=== PATIENT | male | born 1970 | race Caucasian/White ===

== ENCOUNTER 2021-12-24 09:13 | Day surgery (SDC) | payer MEDICARE, OTHER ==
[2021-12-22 12:39] VITALS: BMI 27.1
--- NOTE | 2021-12-24 07:40 | P.GSHP ---
History of Present Illness H&P Date: 12/24/21 CHIEF COMPLAINT: Colon screen HISTORY OF PRESENT ILLNESS: The patient is a 51-year-old male who presents for colon screen. Lower endoscopy was offered for further evaluation and management. PAST MEDICAL HISTORY: Please see list. PAST SURGICAL HISTORY: Please see list. MEDICATIONS: Please see list. ALLERGIES: Please see list. SOCIAL HISTORY: No illicit drug use FAMILY HISTORY: No reports of Crohn disease or ulcerative colitis. REVIEW OF ORGAN SYSTEMS: CONSTITUTIONAL: No reports of fevers or chills. PHYSICAL EXAM: VITAL SIGNS: Stable GENERAL: Well-developed pleasant in no acute distress. HEENT: No scleral icterus. Extraocular movements grossly intact. Moist buccal mucosa. NECK: Supple without lymphadenopathy. CHEST: Unlabored respirations. Equal bilateral excursions. CARDIOVASCULAR: Regular rate and rhythm. Distal 2+ pulses. ABDOMEN: Soft, nontender, nondistended. MUSCULOSKELETAL: No clubbing, cyanosis, or edema. ASSESSMENT: 1. Colon screen. PLAN: 1. Recommend proceeding with a lower endoscopy Past Medical History Past Medical History: GERD/Reflux, Hyperlipidemia, Hypertension, Osteoarthritis (OA) Additional Past Medical History / Comment(s): ELEVATED LIVER ENZYMES - PAST HISTORY , History of Any Multi-Drug Resistant Organisms: None Reported Past Surgical History: Unable to Obtain Additional Past Surgical History / Comment(s): CLEARANCE REP UNABLE TO SAY IF ANY PREVIOUS SURGERY Past Anesthesia/Blood Transfusion Reactions: Unable to Obtain Additional Past Anesthesia/Blood Transfusion Reaction / Comment(s): POSSIBLE DENTAL WITH NO PROBLEM Smoking Status: Never smoker - Past Family History Mother Family Medical History: No Reported History Medications and Allergies Home Medications Medication Instructions Recorded Confirmed Type ALPRAZolam [Xanax] 0.5 mg PO TID 12/22/21 12/22/21 History ARIPiprazole [Abilify] 2.5 mg PO HS 12/22/21 12/22/21 History Atorvastatin [Lipitor] 20 mg PO HS 12/22/21 12/22/21 History Docusate [Colace] 100 mg PO HS 12/22/21 12/22/21 History Metoprolol Succinate [Toprol XL] 100 mg PO DAILY 12/22/21 12/22/21 History Pantoprazole [Protonix] 40 mg PO DAILY 12/22/21 12/22/21 History Vitamin B Complex 1 each PO DAILY 12/22/21 12/22/21 History ramipriL [Altace] 5 mg PO BID 12/22/21 12/22/21 History Allergies Allergy/AdvReac Type Severity Reaction Status Date / Time NSAIDS (Non-Steroidal AdvReac LIVER Verified 12/22/21 12:07 Anti-Inflamma ENZYMES SEASONAL ALLERGIES AdvReac CONGESTION Uncoded 12/22/21 12:31
[~2021-12-24 09:13] MED LIST: LACTATED RINGERS 1,000 ML IV SCH; LIDOCAINE 1% (10MG/ML) FOR IV START INTRADERMA PRN
[2021-12-24 09:49] VITALS: TEMP 98.5
[2021-12-24] MEDS ORDERED: PROPOFOL 10 MG/ML 20 ML VIAL IV ONE (10:37)
--- NOTE | 2021-12-24 10:56 | P.GSHP ---
History of Present Illness H&P Date: 12/24/21 PREOPERATIVE DIAGNOSIS: Colonoscopy screening. POSTOPERATIVE DIAGNOSIS: Colonoscopy screening. OPERATION: Colonoscopy to the cecum, ileocecal valve and appendiceal orifice. SURGEON: Bibi Hurst MD. ANESTHESIA: MAC. INDICATIONS: The patient is a 51-year-old female who presents for colonoscopy screening. Benefits and risks were described and informed consent was obtained. DESCRIPTION OF PROCEDURE: The patient had undergone Sutab prep. The patient had been brought into the operating room and laid in the left lateral decubitus position. After adequate intravenous sedation, the rectum was examined with 2% lidocaine jelly. No external hemorrhoids were encountered. The prostate fossa was unremarkable. The rectal tone was within normal limits. No lesions were palpated in the rectal vault. An Olympus colonoscope was advanced until the cecum, ileocecal valve and appendiceal orifice were clearly viewed. The prep was good. No scattered diverticulosis was encountered. No colonic polyps were found. No evidence of focal colitis was found. Retroflexion of the scope demonstrated grade 1 internal hemorrhoids without active bleeding or inflammation. The colon was desufflated. The patient had tolerated the procedure well. Withdrawal time was over 6 minutes. FINDINGS: Aronchick preparation quality scale 2 (1-5) Internal hemorrhoids, grade 1 No external prolapsed hemorrhoids. No arteriovenous malformations. No adenomatous polyps. No focal colitis. 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 Past Anesthesia/Blood Transfusion Reactions: Unable to Obtain Additional Past Anesthesia/Blood Transfusion Reaction / Comment(s): POSSIBLE DENTAL WITH NO PROBLEM Past Psychological History: Anxiety, Depression Smoking Status: Never smoker Past Alcohol Use History: Rare Past Drug Use History: None Reported - Past Family History Mother Family Medical History: No Reported History Medications and Allergies Home Medications Medication Instructions Recorded Confirmed Type ALPRAZolam [Xanax] 0.5 mg PO TID 12/22/21 12/22/21 History ARIPiprazole [Abilify] 2.5 mg PO HS 12/22/21 12/22/21 History Atorvastatin [Lipitor] 20 mg PO HS 12/22/21 12/22/21 History Docusate [Colace] 100 mg PO HS 12/22/21 12/22/21 History Metoprolol Succinate [Toprol XL] 100 mg PO DAILY 12/22/21 12/22/21 History Pantoprazole [Protonix] 40 mg PO DAILY 12/22/21 12/22/21 History Vitamin B Complex 1 each PO DAILY 12/22/21 12/22/21 History ramipriL [Altace] 5 mg PO BID 12/22/21 12/22/21 History Allergies Allergy/AdvReac Type Severity Reaction Status Date / Time NSAIDS (Non-Steroidal AdvReac LIVER Verified 12/22/21 12:07 Anti-Inflamma ENZYMES SEASONAL ALLERGIES AdvReac CONGESTION Uncoded 12/22/21 12:31 Surgical - Exam Vital Signs Temp Pulse Resp BP Pulse Ox 98.5 F 84 20 135/87 95 12/24/21 09:48 12/24/21 09:48 12/24/21 09:48 12/24/21 09:48 12/24/21 09:48
--- NOTE | 2021-12-24 10:57 | P.PCN ---
Date of Procedure: 12/24/21 Description of Procedure: PREOPERATIVE DIAGNOSIS: Colonoscopy screening. POSTOPERATIVE DIAGNOSIS: Colonoscopy screening. OPERATION: Colonoscopy to the cecum, ileocecal valve and appendiceal orifice. SURGEON: Bibi Hurst MD. ANESTHESIA: MAC. INDICATIONS: The patient is a 51-year-old female who presents for colonoscopy screening. Benefits and risks were described and informed consent was obtained. DESCRIPTION OF PROCEDURE: The patient had undergone Sutab prep. The patient had been brought into the operating room and laid in the left lateral decubitus position. After adequate intravenous sedation, the rectum was examined with 2% lidocaine jelly. No external hemorrhoids were encountered. The prostate fossa was unremarkable. The rectal tone was within normal limits. No lesions were palpated in the rectal vault. An Olympus colonoscope was advanced until the cecum, ileocecal valve and appendiceal orifice were clearly viewed. The prep was good. No scattered diverticulosis was encountered. No colonic polyps were found. No evidence of focal colitis was found. Retroflexion of the scope demonstrated grade 1 internal hemorrhoids without active bleeding or inflammation. The colon was desufflated. The patient had tolerated the procedure well. Withdrawal time was over 6 minutes. FINDINGS: Aronchick preparation quality scale 2 (1-5) Internal hemorrhoids, grade 1 No external prolapsed hemorrhoids. No arteriovenous malformations. No adenomatous polyps. No focal colitis. RECOMMENDATIONS: Lower endoscopy in 10 years, 2031 Plan - Discharge Summary Discharge Rx Participant: No New Discharge Prescriptions: Continue ramipriL [Altace] 5 mg PO BID Pantoprazole [Protonix] 40 mg PO DAILY Vitamin B Complex 1 each PO DAILY Docusate [Colace] 100 mg PO HS Atorvastatin [Lipitor] 20 mg PO HS ARIPiprazole [Abilify] 2.5 mg PO HS ALPRAZolam [Xanax] 0.5 mg PO TID Metoprolol Succinate [Toprol XL] 100 mg PO DAILY Discharge Medication List ALPRAZolam [Xanax] 0.5 mg PO TID 12/22/21 [History] ARIPiprazole [Abilify] 2.5 mg PO HS 12/22/21 [History] Atorvastatin [Lipitor] 20 mg PO HS 12/22/21 [History] Docusate [Colace] 100 mg PO HS 12/22/21 [History] Metoprolol Succinate [Toprol XL] 100 mg PO DAILY 12/22/21 [History] Pantoprazole [Protonix] 40 mg PO DAILY 12/22/21 [History] Vitamin B Complex 1 each PO DAILY 12/22/21 [History] ramipriL [Altace] 5 mg PO BID 12/22/21 [History] Follow up Appointment(s)/Referral(s): Bibi Hurst MD [STAFF PHYSICIAN] - As Needed Patient Instructions/Handouts: *Sur[facility] - (Anesthesia) Endoscopy Discharge Instructions Activity/Diet/Wound Care/Special Instructions: Repeat colonoscopy in 10 years, 2031 Discharge Disposition: HOME SELF-CARE
[2021-12-24 11:02] VITALS: RESP 16
[2021-12-24 11:12] VITALS: BP 109/73; PULSE 71
== END 2021-12-24 11:40 | disposition home or self-care (01) ==
LOC: ORWHC2ENDO 09:13
PROVIDERS: ATTEND Surgery Plastic and Reconstructive Surgery
DX: Z12.11 Encounter for screening for malignant neoplasm of colon (principal); K64.0 First degree hemorrhoids; K21.9 Gastro-esophageal reflux disease without esophagitis; I10 Essential (primary) hypertension; M19.90 Unspecified osteoarthritis, unspecified site; Z79.899 Other long term (current) drug therapy; Z88.6 Allergy status to analgesic agent; J30.2 Other seasonal allergic rhinitis
CPT/HCPCS: J2704; G0121; 45378